=== PATIENT | female | born 1955 | race Caucasian/White ===

== ENCOUNTER → 2018-11-05 11:19 | Outpatient (CLI) | payer OTHER, SELFPAY ==
--- NOTE | 2018-11-05 | DI.MG.S_ITS ---
BILATERAL DIGITAL SCREENING MAMMOGRAM 3D/2D WITH CAD: 11/05/2018 CLINICAL: Routine screening. Family history of breast cancer. Comparison is made to exams dated: 06/03/2017 mammogram, 05/31/2016 mammogram, and 05/02/2015 mammogram - [facility]. The tissue of both breasts is heterogeneously dense. This may lower the sensitivity of mammography. Current study was also evaluated with a Computer Aided Detection (CAD) system. There are benign biopsy clips in both breasts. No significant masses, calcifications, or other findings are seen in either breast. There has been no significant interval change. IMPRESSION: NEGATIVE There is no mammographic evidence of malignancy. A 1 year screening mammogram is recommended. This exam was interpreted at Station ID: [id number]. NOTE: For mammograms, a report in lay terms will be sent to the patient. Approximately 15% of breast malignancies will not be visualized mammographically. In the management of a palpable breast mass, a negative mammogram must not discourage biopsy of a clinically suspicious lesion. Electronically Signed By: Viviana muñoz/jaime:11/05/2018 16:31:03 letter sent: Normal Exam ACR BI-RADS Category 1: Negative 3341F
== END ==
PROVIDERS: Visit Provider Family Medicine
DX: Z12.31 Encounter for screening mammogram for malignant neoplasm of breast (principal); Z80.3 Family history of malignant neoplasm of breast
CPT/HCPCS: 77063; 77067

== ENCOUNTER → 2020-03-05 12:22 | Outpatient (CLI) | payer OTHER, SELFPAY ==
--- NOTE | 2020-03-05 | DI.MG.S_ITS ---
BILATERAL DIGITAL SCREENING MAMMOGRAM 3D/2D WITH CAD: 03/05/2020 CLINICAL: Routine screening. Family history of breast cancer. Comparison is made to exams dated: 06/03/2017 mammogram, 11/05/2018 mammogram, and 05/31/2016 mammogram - [facility]. The tissue of both breasts is heterogeneously dense. This may lower the sensitivity of mammography. Current study was also evaluated with a Computer Aided Detection (CAD) system. There are biopsy clips in both breasts. No significant masses, calcifications, or other findings are seen in either breast. There has been no significant interval change. IMPRESSION: NEGATIVE There is no mammographic evidence of malignancy. A 1 year screening mammogram is recommended. This exam was interpreted at Station ID: [id number]. NOTE: For mammograms, a report in lay terms will be sent to the patient. Approximately 15% of breast malignancies will not be visualized mammographically. In the management of a palpable breast mass, a negative mammogram must not discourage biopsy of a clinically suspicious lesion. Electronically Signed By: Brennon juan/jaime:03/07/2020 08:05:15 letter sent: Normal Exam ACR BI-RADS Category 1: Negative 3341F
== END ==
PROVIDERS: Referring Provider Family Medicine; Visit Provider Family Medicine
DX: Z12.31 Encounter for screening mammogram for malignant neoplasm of breast (principal); Z80.3 Family history of malignant neoplasm of breast
CPT/HCPCS: 77063; 77067

== ENCOUNTER → 2021-04-08 13:38 | Outpatient (CLI) | payer MEDICARE, OTHER, SELFPAY ==
--- NOTE | 2021-04-08 13:45 | DI.MG.S_ITS ---
BILATERAL DIGITAL SCREENING MAMMOGRAM 3D/2D WITH CAD: 04/08/2021 CLINICAL: Routine screening. Family history of breast cancer. Comparison is made to exams dated: 03/05/2020 mammogram, 11/05/2018 mammogram, and 06/03/2017 mammogram - [facility]. The tissue of both breasts is heterogeneously dense. This may lower the sensitivity of mammography. Current study was also evaluated with a Computer Aided Detection (CAD) system. There are benign calcifications in the right breast. There also are biopsy clips in the right breast. Additionally, there is a biopsy clip in the left breast. No significant masses, calcifications, or other findings are seen in either breast. There has been no significant interval change. IMPRESSION: BENIGN There is no mammographic evidence of malignancy. A 1 year screening mammogram is recommended. This exam was interpreted at Station ID: [id number]. NOTE: For mammograms, a report in lay terms will be sent to the patient. Approximately 15% of breast malignancies will not be visualized mammographically. In the management of a palpable breast mass, a negative mammogram must not discourage biopsy of a clinically suspicious lesion. Electronically Signed By: Viviana muñoz/jaime:04/10/2021 10:20:57 letter sent: Normal Exam ACR BI-RADS Category 2: Benign Finding(s) 3342F
== END ==
PROVIDERS: PCP Family Medicine; Referring Provider Family Medicine; Visit Provider Family Medicine
DX: Z12.31 Encounter for screening mammogram for malignant neoplasm of breast (principal); Z80.3 Family history of malignant neoplasm of breast
CPT/HCPCS: 77063; 77067

== ENCOUNTER → 2021-07-23 13:13 | Outpatient (CLI) | payer MEDICARE, OTHER, SELFPAY | PROVIDERS: PCP Family Medicine; Visit Provider Physician Assistant | DX: R30.0 Dysuria (principal) | CPT/HCPCS: 87077; 87086; 87186 ==

== ENCOUNTER → 2021-08-05 12:50 | Outpatient (CLI) | payer MEDICARE, SELFPAY | PROVIDERS: PCP Family Medicine; Visit Provider Physician Assistant | DX: N34.3 Urethral syndrome, unspecified (principal) | CPT/HCPCS: 87077; 87086; 87186 ==

== ENCOUNTER → 2023-08-30 11:06 | Outpatient (CLI) | payer MEDICARE, SELFPAY ==
--- NOTE | 2023-08-30 11:08 | DI.MG.S_ITS ---
BILATERAL DIGITAL SCREENING MAMMOGRAM 3D/2D WITH CAD: 08/30/2023 CLINICAL: Routine screening. Family history of breast cancer. Comparison is made to exams dated: 04/18/2022 mammogram - [facility], 04/08/2021 mammogram, and 03/05/2020 mammogram - [facility]. Both breasts are heterogeneously dense, which may obscure small masses (category c / 51-75% glandular tissue). Current study was also evaluated with a Computer Aided Detection (CAD) system. There is possible architectural distortion in the left breast at 5 o'clock middle depth. There also is a focal asymmetry in the left breast at 5 o'clock posterior depth. No other significant masses, calcifications, or other findings are seen in either breast. IMPRESSION: INCOMPLETE: NEEDS ADDITIONAL IMAGING EVALUATION The possible architectural distortion in the left breast at 5 o'clock middle depth is indeterminate. Additional views with possible ultrasound are recommended. The focal asymmetry in the left breast at 5 o'clock posterior depth is indeterminate. Additional views with possible ultrasound are recommended. Based on the Tyrer Cuzick model (a risk assessment model) the patient's lifetime risk is 13.8% and her 10 year risk is 7.8%. According to the ACR, ACS, and NCCN guidelines, an annual breast MRI exam along with mammogram is recommended if the patient's lifetime risk is 20% or greater. This exam was interpreted at Station ID: [id number]. NOTE: For mammograms, a report in lay terms will be sent to the patient. Approximately 15% of breast malignancies will not be visualized mammographically. In the management of a palpable breast mass, a negative mammogram must not discourage biopsy of a clinically suspicious lesion. Electronically Signed By: Tamela pugh/jaime:08/30/2023 13:50:53 letter sent: Additional Imaging Needed ACR BI-RADS Category 0: Incomplete 3340F
== END ==
PROVIDERS: PCP Family Medicine; Referring Provider Family Medicine; Visit Provider Family Medicine
DX: Z12.31 Encounter for screening mammogram for malignant neoplasm of breast (principal); Z80.3 Family history of malignant neoplasm of breast; R92.333 Mammographic heterogeneous density, bilateral breasts
CPT/HCPCS: 77063; 77067

== ENCOUNTER → 2023-09-27 09:25 | Outpatient (CLI) | payer MEDICARE, SELFPAY ==
--- NOTE | 2023-09-27 09:26 | DI.US.S_ITS ---
LIMITED ULTRASOUND OF LEFT BREAST: 09/27/2023 CLINICAL: Patient returns today to evaluate a focal asymmetry in the left breast. Comparison is made to exams dated: 09/27/2023 mammogram, 08/30/2023 mammogram - [facility], 04/18/2022 mammogram - [facility], 04/08/2021 mammogram, 03/05/2020 mammogram, and 11/05/2018 mammogram - [facility]. Color flow and real-time ultrasound of the left breast 5 o'clock region were performed. Ramirez scale images of the real-time examination were reviewed. There is a 0.7 cm x 0.6 cm x 0.3 cm oval complicated cyst in the left breast at 5 o'clock posterior depth 6 cm from the nipple. This oval complicated cyst is hypoechoic. This correlates with mammography findings. Color flow imaging demonstrates that there is no vascularity present. IMPRESSION: PROBABLY BENIGN The 0.7 cm complicated cyst in the left breast is probably benign. A follow-up mammogram and an ultrasound in 6 months is recommended to demonstrate stability. Exam findings were conveyed to the patient. This exam was interpreted at Station ID: [id number]. Electronically Signed By: Cy White M.D. slc/:09/27/2023 10:54:35 letter sent: Followup Recommended Ultrasound BI-RADS: 3 Probably benign
--- NOTE | 2023-09-27 09:26 | DI.MG.S_ITS ---
UNILATERAL LEFT DIGITAL DIAGNOSTIC MAMMOGRAM 3D/2D WITH ADDITIONAL VIEWS: 09/27/2023 CLINICAL: Additional evaluation requested from prior study. Comparison is made to exams dated: 08/30/2023 mammogram - [facility], 04/18/2022 mammogram - [facility], 04/08/2021 mammogram, 03/05/2020 mammogram, 11/05/2018 mammogram, and 06/03/2017 mammogram - [facility]. The left breast is heterogeneously dense, which may obscure small masses (category c / 51-75% glandular tissue). There is possible architectural distortion in the left breast at 5 o'clock middle depth. This is not seen in additional views. There also is a focal asymmetry in the left breast at 5 o'clock posterior depth. This is less prominent. No other significant masses or calcifications are seen in the breast. IMPRESSION: INCOMPLETE: NEEDS ADDITIONAL IMAGING EVALUATION The focal asymmetry in the left breast at 5 o'clock posterior depth is indeterminate. A targeted ultrasound is recommended and will immediately follow. Based on the Tyrer Cuzick model (a risk assessment model) the patient's lifetime risk is 13.8% and her 10 year risk is 7.8%. According to the ACR, ACS, and NCCN guidelines, an annual breast MRI exam along with mammogram is recommended if the patient's lifetime risk is 20% or greater. This exam was interpreted at Station ID: [id number]. NOTE: For mammograms, a report in lay terms will be sent to the patient. Approximately 15% of breast malignancies will not be visualized mammographically. In the management of a palpable breast mass, a negative mammogram must not discourage biopsy of a clinically suspicious lesion. Electronically Signed By: Cy White M.D. slc/:09/27/2023 10:56:09 ACR BI-RADS Category 0: Incomplete 3340F
== END ==
PROVIDERS: PCP Family Medicine; Referring Provider Family Medicine; Visit Provider Family Medicine
DX: R92.8 Other abnormal and inconclusive findings on diagnostic imaging of breast (principal); R92.332 Mammographic heterogeneous density, left breast; N60.02 Solitary cyst of left breast
CPT/HCPCS: 76642; 77065; G0279

== ENCOUNTER → 2024-04-15 13:16 | Outpatient (CLI) | payer MEDICARE, SELFPAY ==
--- NOTE | 2024-04-15 13:18 | DI.US.S_ITS ---
LIMITED ULTRASOUND OF LEFT BREAST: 04/15/2024 CLINICAL: Patient returns today to evaluate a focal asymmetry in the left breast. Comparison is made to exams dated: 04/15/2024 mammogram, 09/27/2023 ultrasound, 09/27/2023 mammogram, 08/30/2023 mammogram - [facility], 04/18/2022 mammogram - [facility], and 04/08/2021 mammogram - [facility]. Ultrasound of the left breast 4-5 o'clock region was performed. Ramirez scale images of the real-time examination were reviewed. No significant abnormalities were seen sonographically in the left breast. Stable oval area of glandular tissue vs complicated cyst in the 5:00 position, amidst other heterogeneous glandular tissue, and areas of fibrofatty tissue. No focal findings to explain mammographic appearance. IMPRESSION: PROBABLY BENIGN Mammographic appearance is probably benign. No new or significant sonographic abnormalities. A follow-up left mammogram in 6 months is recommended to demonstrate stability. The patient will be due for bilateral mammograms at that same visit. Findings and recommendations were conveyed to the patient at time of exam. This exam was interpreted at Station ID: [id number]. Electronically Signed By: Viviana muñoz/:04/15/2024 15:14:41 letter sent: Followup Recommended ACR BI-RADS Category 3: Probably Benign
--- NOTE | 2024-04-15 13:18 | DI.MG.S_ITS ---
UNILATERAL LEFT DIGITAL DIAGNOSTIC MAMMOGRAM 3D/2D: 04/15/2024 CLINICAL: Patient returns for a 6 month follow up of the left breast. Comparison is made to exams dated: 09/27/2023 mammogram, 08/30/2023 mammogram - [facility], 04/18/2022 mammogram - [facility], and 04/08/2021 mammogram - [facility]. The breasts are heterogeneously dense, which may obscure small masses (category c / 51-75% glandular tissue). There is possible architectural distortion in the left breast at 5 o'clock middle depth. This is less prominent. There also is a possible focal asymmetry in the left breast at 6 o'clock posterior depth. This is not significantly changed. No other significant masses or calcifications are seen in the breast. Biopsy site marker in the medial left breast. IMPRESSION: INCOMPLETE: NEED ADDITIONAL IMAGING EVALUATION No significant change to asymmetry in left breast and less prominent architectural distortion. There are probably fibrocystic tissue. Ultrasound is recommended for full evaluation of this area and to confirm stability. This was performed immediately following this exam. Based on the Tyrer Cuzick model (a risk assessment model) the patient's lifetime risk is 13.1% and her 10 year risk is 7.9%. According to the ACR, ACS, and NCCN guidelines, an annual breast MRI exam along with mammogram is recommended if the patient's lifetime risk is 20% or greater. This exam was interpreted at Station ID: [id number]. NOTE: For mammograms, a report in lay terms will be sent to the patient. Approximately 15% of breast malignancies will not be visualized mammographically. In the management of a palpable breast mass, a negative mammogram must not discourage biopsy of a clinically suspicious lesion. Electronically Signed By: Viviana muñoz/:04/15/2024 14:10:01 letter sent: Additional Imaging Needed ACR BI-RADS Category 0: Incomplete: Need Additional Imaging Evaluation
== END ==
PROVIDERS: PCP Family Medicine; Referring Provider Family Medicine; Visit Provider Family Medicine
DX: R92.8 Other abnormal and inconclusive findings on diagnostic imaging of breast (principal); R92.333 Mammographic heterogeneous density, bilateral breasts
CPT/HCPCS: 76642; 77065; G0279

== ENCOUNTER → 2024-10-23 09:07 | Outpatient (CLI) | payer MEDICARE, SELFPAY ==
--- NOTE | 2024-10-23 | DI.US.S_ITS ---
MM diagnostic mammo BI, US breast LT limited: 10/23/2024 BI-RADS: 3 CLINICAL: 69-year old female for bilateral diagnostic mammogram and left diagnostic breast ultrasound. Tyrer-Cuzick lifetime risk of 13.2%. No personal or first-degree family history of breast cancer. Current reported family history of breast cancer: maternal grandmother. The patient had prior bilateral breast biopsies. The patient is status-post reduction mammoplasty. PRIOR EXAMS 04/15/2024, 09/27/2023, 08/30/2023, 04/18/2022, 04/08/2021, 03/05/2020, 11/05/2018. MAMMOGRAPHY TECHNIQUE: 2D and 3D (tomosynthesis) digital mammographic views obtained, with additional images as needed for full coverage. Current study was also evaluated with a Computer Aided Detection (CAD) system. ULTRASOUND TECHNIQUE TARGETED Left Breast Ultrasound: Real-time ultrasound exam was performed focused to area of clinical and/or imaging concern. Real-time arroyo scale and color doppler imaging of the area of clinical interest was performed with image documentation. DENSITY C. The breasts are heterogeneously dense, which may obscure small masses. MAMMOGRAPHY FINDINGS Right: No suspicious mass, asymmetry, microcalcification, or other abnormality seen. Left (finding-1): Lower Outer at 5:00, Posterior depth: Correlating with ultrasound findings there is an area of architectural distortion present that is unchanged in size and appearance. ULTRASOUND FINDINGS Left (finding-1): Lower Outer at 5:00, measuring 0.7 x 0.7 x 0.2 cm: There is an oval, circumscribed cyst vs solid mass that is unchanged in size and appearance. Doppler shows no vascularity. Left: Lower Outer at 5:00: There is no sonographic correlate for the mammographic finding. IMPRESSION: Right * No evidence of malignancy. Left (Arch Distortion): Lower Outer at 5:00, Posterior depth * Probably Benign. Left: Lower Outer at 5:00 * Probably Benign. RECOMMENDATIONS Left: Lower Outer at 5:00 * Followup with diagnostic ultrasound in one year. Left * Followup with diagnostic mammography and diagnostic ultrasound in one year. Ultrasound to be performed only if needed (To demonstrate long-term stability.). OVERALL ASSESSMENT CATEGORY BI-RADS-3: Probably Benign. ELECTRONICALLY SIGNED: Cy White M.D. on 10/23/2024 at 12:21:29 PM PT Interpreting Station ID: [id number]
== END ==
LOC: MAMMO 09:08
PROVIDERS: PCP Family Medicine; Referring Provider Family Medicine; Visit Provider Family Medicine
DX: R92.8 Other abnormal and inconclusive findings on diagnostic imaging of breast (principal); Z80.3 Family history of malignant neoplasm of breast; R92.333 Mammographic heterogeneous density, bilateral breasts
CPT/HCPCS: 76642; 77066; G0279